=== PATIENT | male | born 1980 | race Caucasian/White ===

== ENCOUNTER 2022-11-29 00:02 | Emergency (ER) | payer OTHER ==
[~2022-11-29] VITALS: Ht 180.3 cm; Wt 97.5 kg
--- NOTE | 2022-11-29 00:14 | NUR ---
[id number] [facility] DUE TO HIGH BLOOD PRESSURE. PT AAO X 4, BREATHING UNLABORED. PT DENIES CHEST PAIN. PT STATES HE IS ON REHAB FOR DRUGS AND LAST METHAMPHETAMINE USE HAS BEEN IN A WHILE. PT ATTACHED TO MONITOR AND PULSE OX. AWAITING MD HILL.
--- NOTE | 2022-11-29 00:20 | NUR ---
Dr Hunter at bedside for eval.
[2022-11-29] MEDS ORDERED: CLONIDINE HCL 0.1 MG TABLET ONE (00:25)
[2022-11-29] MEDS ORDERED: CLONIDINE HCL 0.1 MG TABLET PO ONE (00:30)
--- NOTE | 2022-11-29 00:31 | NUR ---
PT UNABLE TO PROVIDE URINE SAMPLE AT THIS TIME.
[2022-11-29 01:19] LABS: BILIRUBIN,URINE NEGATIVE (NEGATIVE); COLOR,URINE YELLOW (YELLOW); LEUKOCYTE ESTERASE ,URINE NEGATIVE (NEGATIVE); NITRITE, URINE NEGATIVE (NEGATIVE); PROTEIN,URINE NEGATIVE (NEGATIVE); UGLUCOSE NEGATIVE (NEGATIVE); UROBILINOGEN,URINE 0.2 EU/dL (0.2)
[2022-11-29] MEDS ORDERED: CLON0.1T PO (01:53)
[2022-11-29] MEDS ORDERED: PANT40TA2 PO (01:53)
[2022-11-29] MEDS ORDERED: PANTOPRAZOLE 40 MG TABLET.DR PO ONE (02:00)
[2022-11-29] MEDS ORDERED: LIDOCAINE VISCOUS 2% UD 15 ML UDC MM ONE (02:00)
[2022-11-29] MEDS ORDERED: MAG HYDROX/AL HYDROX/SIMETH 30 ML UDC PO ONE (02:00)
--- NOTE | 2022-11-29 02:02 | NUR ---
Patient discharged back to rehab center in stable condition. Written and verbal after care instructions given. Patient verbalizes understanding of instruction. Pt is ambulatory with a steady gait
--- NOTE | 2022-11-29 02:02 | NUR ---
Kenan lujan in ED - 11/29/22 at 0202 by NORA Patient discharged to home in stable condition. Written and verbal after care instructions given. Patient verbalizes understanding of instruction. Pt is ambulatory with a steady gait
[2022-11-29 02:03] VITALS: BP 151/94; TEMP 98.5; O2SAT 97
== END 2022-11-29 02:04 ==
LOC: ER 00:18
DX: I10 Essential (primary) hypertension (principal); K21.9 Gastro-esophageal reflux disease without esophagitis; Z88.0 Allergy status to penicillin